=== PATIENT | female | born 1935 | race Caucasian/White ===

== ENCOUNTER 2019-01-14 10:27 | Emergency (ER) | payer MEDICARE ==
--- NOTE | 2019-01-14 11:12 | EDM.PDOC ---
ED HPI GENERAL MEDICAL PROBLEM - General Chief Complaint: Lower Extremity Injury/Pain Stated Complaint: PAIN IN RIGHT WRIST AND RIGHT FOOT Time Seen by Provider: 01/14/19 11:00 Source of Information: Reports: Patient, Family, RN History Limitations: Reports: No Limitations - History of Present Illness INITIAL COMMENTS - FREE TEXT/NARRATIVE: 84 yo [facility] patient fell yesterday. Has R ankle pain, doesn't want to bare weight on it. R hand/wrist ecchymotic but minimal pain. 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 (see below) (IVETTE wrap) 8 Pain Score (Numeric/FACES): 6 - Related Data Allergies Allergy/AdvReac Type Severity Reaction Status Date / Time nitrofurantoin Allergy Hives Verified 01/14/19 11:09 [From Macrobid] Sulfa (Sulfonamide Allergy Hives Verified 01/14/19 11:09 Antibiotics) Home Meds: Home Meds Aspirin 01/14/19 [History] Hydrocodone/Acetaminophen [Vicodin 5-300 mg Tablet] 01/14/19 [History] Losartan Potassium 01/14/19 [History] Metoprolol Succinate 01/14/19 [History] QUEtiapine [SEROquel] 01/14/19 [History] Sennosides/Docusate Sodium [Senna-Docusate Sodium Tablet] 01/14/19 [History] amLODIPine Besylate [Norvasc] 01/14/19 [History] Social & Family History - Tobacco Use Smoking Status *Q: Never Smoker Review of Systems - Review of Systems Review Of Systems: See Below Constitutional: Reports: No Symptoms Musculoskeletal: Reports: Joint Pain (R ankle) Skin: Reports: Bruising (R hand and wrist.) Neurological: Reports: No Symptoms ED EXAM, GENERAL - Physical Exam Exam: See Below Exam Limited By: No Limitations General Appearance: Alert, WD/WN, No Apparent Distress Extremities: Other (R hand is ecchymotic dorsally with a full ROM, R ankle is minimal swollen but more pain with movement. Pain is maximal just above the ankle. ) Neurological: Alert, Oriented, CN II-XII Intact, Normal Cognition, No Motor/ Sensory Deficits Psychiatric: Normal Affect, Normal Mood Skin Exam: Warm, Dry, Intact, No Rash, Ecchymosis (R hand and wrist ? broken vein) Course - Vital Signs Last Recorded V/S: Last Vital Signs Temp 35.4 C 01/14/19 11:02 Pulse 83 01/14/19 11:02 Resp 16 01/14/19 11:02 BP 120/62 01/14/19 11:02 Pulse Ox 99 01/14/19 11:02 - Orders/Labs/Meds Orders: Active Orders 24 hr Category Date Time Status Ankle Min 3V Rt [CR] Stat Exams 01/14/19 11:06 Ordered Meds: Medications Discontinued Medications Generic Name Dose Route Start Last Admin Trade Name Freq PRN Reason Stop Dose Admin Hydrocodone Bitart/Acetaminophen 1 tab 01/14/19 11:23 [place] 325-5 Mg PO 01/14/19 11:24 ONETIME ONE - Radiology Interpretation Free Text/Narrative:: R ankle X-ray-neg Departure - Departure Time of Disposition: 11:40 Disposition: Home, Self-Care 01 Condition: Fair Clinical Impression: Right ankle sprain Qualifiers: Encounter type: initial encounter Involved ligament of ankle: unspecified ligament Qualified Code(s): S93.401A - Sprain of unspecified ligament of right ankle, initial encounter - Discharge Information *PRESCRIPTION DRUG MONITORING PROGRAM REVIEWED*: No *COPY OF PRESCRIPTION DRUG MONITORING REPORT IN PATIENT ZAMZAM: No Instructions: Elastic Bandage and RICE Referrals: Violette Agosto [Primary Care Provider] - Forms: ED Department Discharge Additional Instructions: Elevate foot when able. No weight bearing for the next few days, and then only with assistance until stable. Recheck as needed. - My Orders Last 24 Hours: My Active Orders 01/14/19 11:06 Ankle Min 3V Rt [CR] Stat - Assessment/Plan Last 24 Hours: My Active Orders 01/14/19 11:06 Ankle Min 3V Rt [CR] Stat
[2019-01-14] MEDS ORDERED: Acetaminophen/HYDROcodone 325-5 MG Tab PO ONE (11:23)
--- NOTE | 2019-01-14 12:19 | CRLCR ---
Indication: Injury. Technique: Three views of the right ankle were obtained. Comparison: None Findings: Degenerative changes of the right ankle identified. The talar dome is intact. Ankle mortise intact. No acute fracture or subluxation is identified. Impression: Degenerative change. Dictated by Lulu Reyes MD @ Jan 14 2019 12:16PM Signed by Dr. Lulu Reyes @ Jan 14 2019 12:17PM
== END 2019-01-14 11:48 | disposition home or self-care (01) ==
LOC: JP.ED 10:27
DX: S93.401A Sprain of unspecified ligament of right ankle, initial encounter (principal); Z79.82 Long term (current) use of aspirin; Z88.2 Allergy status to sulfonamides; Z79.899 Other long term (current) drug therapy; Z88.1 Allergy status to other antibiotic agents; W19.XXXA Unspecified fall, initial encounter
CPT/HCPCS: 73610; 99283; A9270